=== PATIENT | male | born 2000 | race Caucasian/White ===

== ENCOUNTER 2018-11-16 09:48 | Emergency (ER) | payer BC, OTHER ==
[2018-11-16] MEDS ORDERED: ONDANSETRON INJ 4 MG/2 ML VIAL IV ONE (10:23)
[2018-11-16] MEDS ORDERED: SODIUM CHLORIDE 0.9% 1000ML 1,000 ML IVS ONE (10:23)
[2018-11-16] MEDS ORDERED: IBUPROFEN 400 MG TAB PO ONE (10:23)
[2018-11-16] MEDS ORDERED: ACETAMINOPHEN 500 MG TAB PO ONE (10:23)
--- NOTE | 2018-11-16 10:27 | ED.PDOC ---
History of Present Illness - General Chief Complaint: Headache Stated Complaint: Headache, N/V x 12 hours Time Seen by Provider: 11/16/18 10:14 Source: patient, Vital Signs reviewed, family, RN/MD Exam Limitations: no limitations Additional Information: Patient is a 18 yo M presenting with a headache that has been persistent over the past 24 hours. He endorses low-grade fevers at home. He has had some abdominal pain yesterday with episodes of nausea and vomiting. He denies any vision changes, weakness in extremities, numbness in the extremities. Denies recent cough, upper respiratory congestion, ear pain, throat pain, dysuria, hematuria, or urinary frequency. He is up-to-date on immunizations. He currently lives at home and does not live in a dorm. He denies any neck pain or neck stiffness. - History of Present Illness Timing/Duration: 24 hours Quality: moderate, constant, throbbing Head Injury Location: global Recent Head Trauma: no recent headache/trauma Improving Factors: nothing Worsening Factors: nothing Associated Symptoms: fatigue, nausea/vomiting Allergies/Adverse Reactions: Allergies NO KNOWN ALLERGY Allergy (Verified 11/16/18 10:12) Home Medications: Ambulatory Orders NK 11/16/18 Review of Systems - Review of Systems Constitutional: States: see HPI. Denies: chills, malaise, weakness EENTM: Denies: eye pain, blurred vision, double vision, ear pain, nose congestion, throat pain Respiratory: Denies: cough, short of breath Cardiology: Denies: chest pain Gastrointestinal/Abdominal: States: abdominal pain, nausea, vomiting Genitourinary: Denies: dysuria, hematuria Musculoskeletal: Denies: neck pain Neurological: States: headache. Denies: numbness, weakness Endocrine: States: no symptoms reported Hematologic/Lymphatic: States: no symptoms reported Past Medical History (General) - Patient Medical History Hx Stroke: No Hx of COPD: No Hx Cardiac Disorders: No Hx Hypertension: No Hx Diabetes: No Hx Cancer: No Surgical History: no surgical history - Vaccination History Hx Tetanus, Diphtheria Vaccination: No Hx Influenza Vaccination: No Hx Pneumococcal Vaccination: No - Social History Hx Tobacco Use: Yes - Vapes Hx Alcohol Use: Yes - Rarely Hx Substance Use: No Hx Substance Use Treatment: No Hx Depression: No - Female History Patient is a Female of Child Bearing Age (10 -59 yrs old): No Patient : No Family Medical History - Family History Maternal Grandparents Hx Cardiac Disease: Yes Hx Family Diabetes: Yes Physical Exam - Physical Exam General Appearance: Alert, No apparent distress, Well Developed, Well Groomed, Well Hydrated, Well Nourished Eyes, Ears, Nose, Throat Exam: PERRL/EOMI, normal ENT inspection Neck: non-tender, full range of motion, supple, normal inspection, trachea midline Cardiovascular/Chest: normal peripheral pulses, regular rate, rhythm, no edema, no gallop, no JVD, no murmur Respiratory: normal breath sounds, no respiratory distress, no accessory muscle use Gastrointestinal/Abdominal: normal bowel sounds, non tender, soft Extremity: normal inspection 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 Patient's headache improved. He still has some residual headache. Discussed CT was not significant for large mass or ICH. Discussed lumbar puncture with patient and family to rule out meningitis, but they declined. I discussed that the patient could have an underlying bacterial vs. viral meningitis, however we would not be able to definitively make the diagnosis without LP. Family and patient declined. They would rather treat symptomatically at this time. 11/16/18 18:27 Patient presented for evaluation of headache and low grade fevers. He was not meningitic or having any focal deficits on examination. He was found to have no leukocytosis on lab work. Metabolic panel was WNL. He was given motrin and a liter of IV fluids with improvement in his symptoms with residual headache. CT was not significant for mass or ICH. I discussed that we could not rule out meningitis without LP, however patient and family declined. I discussed that my suspicion was for viral meningitis vs. viral syndrome. Patient stated that he understood but would like symptomatic management at this time. He was given 15mg IV toradol, 10mg Compazine, 50mg Benadyrl and 2g Magnesium with resolution in his headache. He will be discharged home with plans for outpatient follow-up. - Results/Orders Results/Orders: Laboratory Results - last 24 hr 11/16/18 11/16/18 11/16/18 10:52 10:52 10:52 WBC 9.2 RBC 5.38 Hgb 17.7 Hct 51.0 MCV 94.8 H MCH 33.0 H MCHC 34.8 RDW 13.3 Plt Count 216 MPV 9.8 Absolute Neuts (auto) 7.90 H Absolute Lymphs (auto) 0.60 L Absolute Monos (auto) 0.60 Absolute Eos (auto) 0.00 Absolute Basos (auto) 0.00 Neutrophils % 86.1 H Lymphocytes % 6.3 L Monocytes % 7.0 Eosinophils % 0.1 L Basophils % 0.5 Sodium 136 Potassium 4.0 Chloride 101 Carbon Dioxide 21 Anion Gap 18.0 BUN 13 Creatinine 0.88 BUN/Creatinine Ratio 14.8 Random Glucose 110 H Serum Osmolality 272.7 L Lactic Acid 1.3 Calcium 9.4 Total Bilirubin 0.9 AST 23 ALT 25 Alkaline Phosphatase 94 Serum Total Protein 8.2 Albumin 4.6 Globulin 3.6 H Albumin/Globulin Ratio 1.3 CT Head: FINDINGS: Normal dickey-white matter differentiation. Ventricles and sulci are normal for age. No high density hemorrhage, focal edema or shift of the midline. No sulcal effacement. Normal orbital contents. Basilar cisterns appear clear. Intact calvarium with no fracture or lytic lesion. Normal aeration of tympanic cavities and mastoid air cells. No fluid levels in the paranasal sinuses. Skull base appears intact. Symmetrical internal auditory canals. Coronal and sagittal images confirm the findings. Low-lying cerebellar tonsils. IMPRESSION: No acute intracranial pathologic process. This exam was performed according to our departmental dose-optimization program, which includes automated exposure control, adjustment of the mA and/or kV according to patient size and/or use of iterative reconstruction technique. Total DLP equals 752.48 mGycm. Electronically signed by: Akin Beasley MD 11/16/2018 11:02 AM CDT Departure - Departure Clinical Impression: Headache Disposition: Discharge to Home or Self Care Condition: Good Departure Forms: ED Discharge - Pt. Copy, Patient Portal Self Enrollment Instructions: DI for Headache Diet: resume usual diet Activity: increase activity as tolerated Referrals: Danny Gonzalez MD [Primary Care Provider] - 1-2 Weeks Home Medications: Ambulatory Orders NK 11/16/18 Comments: Darwin GuerraO. [id number]
[2018-11-16] MEDS ORDERED: IBUPROFEN 200 MG TAB ONE (10:59)
--- NOTE | 2018-11-16 11:04 | CT ---
EXAM DESCRIPTION: Head CLINICAL HISTORY: OLIVAS. Low grade fever. Assess for ICH vs. mass effec COMPARISON: None available TECHNIQUE: Noncontrast head CT was performed with routine protocol. FINDINGS: Normal dickey-white matter differentiation. Ventricles and sulci are normal for age. No high density hemorrhage, focal edema or shift of the midline. No sulcal effacement. Normal orbital contents. Basilar cisterns appear clear. Intact calvarium with no fracture or lytic lesion. Normal aeration of tympanic cavities and mastoid air cells. No fluid levels in the paranasal sinuses. Skull base appears intact. Symmetrical internal auditory canals. Coronal and sagittal images confirm the findings. Low-lying cerebellar tonsils. IMPRESSION: No acute intracranial pathologic process. This exam was performed according to our departmental dose-optimization program, which includes automated exposure control, adjustment of the mA and/or kV according to patient size and/or use of iterative reconstruction technique. Total DLP equals 752.48 mGycm. Electronically signed by: Akin Beasley MD 11/16/2018 11:02 AM CDT
[2018-11-16] MEDS ORDERED: PROCHLORPERAZINE INJ 10 MG/2 ML VIAL IV ONE (11:42)
[2018-11-16] MEDS ORDERED: MAGNESIUM SULFATE INJ 2 GM in SODIUM CHLORIDE 0.9% 100ML 100 ML IVPB ONE (11:42)
[2018-11-16] MEDS ORDERED: KETOROLAC TROMETHAMINE INJ 30 MG/ML VIAL IV ONE (11:42)
[2018-11-16] MEDS ORDERED: diphenhydrAMINE HCL 50 MG/ML VIAL IM ONE (11:42)
[2018-11-16] MEDS ORDERED: MAGNESIUM SULFATE PREMIX 2GM 50 ML IVPB ONE (11:54)
[2018-11-16] MEDS ORDERED: MAGNESIUM SULFATE IVPB ONE (11:57)
[2018-11-16] MEDS ORDERED: SODIUM CHLORIDE 0.9% IVPB ONE (11:57)
[2018-11-16] MEDS ORDERED: MAGNESIUM SULFATE PREMIX 2GM 2 GM in PREMIX BAG 1 BAG IVPB ONE (12:03)
[2018-11-16 12:53] VITALS: O2SAT 98
[2018-11-16 12:54] VITALS: BP 117/77; TEMP 98.7
== END 2018-11-16 12:45 | disposition home or self-care (01) ==
LOC: ER 09:48
DX: R51 Headache (principal); R11.2 Nausea with vomiting, unspecified; R10.9 Unspecified abdominal pain; R50.9 Fever, unspecified; F17.290 Nicotine dependence, other tobacco product, uncomplicated
CPT/HCPCS: 36415; 70450; 80053; 83605; 85025; J0780; J1200; J1885; J2405; J3475; J7030